=== PATIENT | female | born 1940 | race Caucasian/White ===

== ENCOUNTER 2021-01-30 09:47 | Day surgery (SDC) | payer MEDICARE ==
[2021-01-29 11:08] LABS: HEMOGLOBIN 12.7 g/dl (12.0-16.0); PLATELET COUNT 155 X10'3 (140-440); RED BLOOD COUNT 4.36 X10'6 (4.20-5.60); RED CELL DISTRIBUTION WIDTH 13.1 % (11.5-14.5)
[2021-01-29 11:10] LABS: BASOPHILS % (AUTO) 0.7 % (0-1); EOSINOPHILS % (AUTO) 0.4 % (0-6); LYMPHOCYTES # (AUTO) 1.8 X10'3 (1.1-4.8); LYMPHOCYTES % (AUTO) 37.5 % (21-51); MEAN CORPUSCULAR HEMOGLOBIN 29.2 PG (27.0-31.0); MEAN CORPUSCULAR HGB CONC 33.5 g/dL (33.0-36.5); MEAN CORPUSCULAR VOLUME 87.1 FL (78-98); MEAN PLATELET VOLUME 8.7 FL (7.4-10.4); MONOCYTES # (AUTO) 0.4 X10'3 (0-0.9); MONOCYTES % (AUTO) 8.8 % (2-12); NEUTROPHILS # (AUTO) 2.5 X10'3 (1.8-7.7); NEUTROPHILS % (AUTO) 52.6 % (42-75); WHITE BLOOD COUNT 4.8 X10'3 (4.5-11.0)
[2021-01-29 11:14] LABS: ALBUMIN 3.9 G/DL (3.4-5.0); ANION GAP 6 (8-16); BLOOD UREA NITROGEN 21 MG/DL (7-18); BUN/CREATININE RATIO 25.6 (6.6-38.0); CALCIUM 8.9 MG/DL (8.5-10.1); CHLORIDE 107 MMOL/L (99-107); CREATININE 0.82 MG/DL (0.40-0.90); GLUCOSE 92 MG/DL (70-104); POTASSIUM 4.4 MMOL/L (3.5-5.1); SODIUM 142 MMOL/L (135-145); TOTAL CARBON DIOXIDE 29.1 MMOL/L (24-32); eGFR 67 ML/MIN
[2021-01-29 11:18] LABS: PARTIAL THROMBOPLASTIN TIME 27 SECONDS (22-32)
[~2021-01-30] VITALS: Ht 157.5 cm; Wt 69.5 kg
[2021-01-30] VITALS (11 sets, daily range): BP systolic 99–165; BP diastolic 46–88
[~2021-01-30 09:47] MED LIST: AMIO200T61 PO; APIX5TAB3 PO; ATOR20TA66 PO; LISI20TA28 PO; MULT-1141 PO
[2021-01-30] MEDS ORDERED: ATOR20TA66 PO (10:37)
[2021-01-30] MEDS ORDERED: OMEG1CAP2 PO (10:37)
[2021-01-30] MEDS ORDERED: normal saline 1000ml 1,000 ML IV SCH (10:50)
[2021-01-30] MEDS ORDERED: LIDOcaine 1% W/epiNEPHrine 1:100,000 20ml vial ONE (12:48)
[2021-01-30] MEDS ORDERED: midazolam 1 mg/ML 2ml injection ONE (13:05)
[2021-01-30] MEDS ORDERED: clindamycin 600mg/D5W 50ml 50 ML IV ONE (13:06)
[2021-01-30] MEDS ORDERED: fentaNYL/PF 50MCG/1 ML 2ML syringe ONE (13:06)
[2021-01-30] MEDS ORDERED: clindamycin phosphate 150mg/ml inj. ONE (13:20)
[2021-01-30] MEDS ORDERED: iohexol 350MG/ML 100ml bottle IV ONE (13:35)
[2021-01-30] MEDS ORDERED: vancomycin/NS 1 GM ADD-VANTAGE 250 ML X 1 DOSE IV ONE (15:30)
[2021-01-30] MEDS ORDERED: acetaminophen 325mg tablet PO PRN (17:50)
--- NOTE | 2021-01-30 18:57 | NUR ---
Report to [facility]
== END 2021-01-30 20:10 | disposition home or self-care (01) ==
LOC: SSTAY O 09:47
PROVIDERS: ATTEND Internal Medicine Cardiovascular Disease
DX: I49.5 Sick sinus syndrome (principal); I25.10 Atherosclerotic heart disease of native coronary artery without angina pectoris; I48.0 Paroxysmal atrial fibrillation; E78.5 Hyperlipidemia, unspecified; I10 Essential (primary) hypertension; Z86.73 Personal history of transient ischemic attack (TIA), and cerebral infarction without residual deficits; Z98.41 Cataract extraction status, right eye; Z98.42 Cataract extraction status, left eye; Z79.01 Long term (current) use of anticoagulants; Z98.890 Other specified postprocedural states; Z79.899 Other long term (current) drug therapy; Z88.0 Allergy status to penicillin; Z91.030 Bee allergy status; Z83.3 Family history of diabetes mellitus; Z80.9 Family history of malignant neoplasm, unspecified
CPT/HCPCS: 33208; 36415; 71045; 80048; 85025; 85610; 85730; 93005; 99152; 99153; C1785; C1894; C1898; J2250; J3010; J3370; J3490; J7030; Q9967; A4565; A6449